=== PATIENT | male | born 1935 | race Caucasian/White ===

== ENCOUNTER 2016-10-21 11:51 | Inpatient (IN) ==
--- OUTSIDE RECORDS SUMMARY | 2016-10-21 12:36 | External Medical Summary ---
:1935 Author Organization [facility] Address [address] [place] [address] Care Team Providers Name Role Phone Susy Daily Unavailable Unavailable PROBLEMS Type Condition ICD9-CM Code [id number] Onset Condition SNOMED Code Code Dates Status Problem Ischemic I25.5 Active 413012158 cardiomyopathy ALLERGIES Unknown Allergies SOCIAL HISTORY No smoking Hx information available PLAN OF CARE VITAL SIGNS MEDICATIONS Unknown Medications RESULTS No Results PROCEDURES No Known procedures IMMUNIZATIONS No Known Immunizations
--- OUTSIDE RECORDS SUMMARY | 2016-10-21 12:36 | External Medical Summary ---
:1935 Author Organization [employer] Care Team Providers Name Role Phone Susy Daily Provider Role Unavailable Allergies, Adverse Reactions, Alerts Substance Reaction Event Type N.K.D.A. Info Not Available Non Drug Allergy Problems Problem Type Condition Code Onset Dates Condition Status Assessment Ischemic cardiomyopathy I25.5 Active Problem Ischemic cardiomyopathy I25.5 Active Medications Medication Code Code Instructions Start End Date Status Dosage System Date Plavix NDC 04597-76 75 MG Orally 1 tablet 03-99 Once a day Lisinopril NDC 93521-43 40 MG Orally 1 tablet 70-01 Once a day Aspirin NDC 88339-80 81 MG Orally 1 tablet 805 Once a day Carvedilol NDC 04862-67 6.25 MG Orally 1 tablet 35-01 Twice a day Furosemide NDC 43743-85 20 MG Orally 1 tablet 97-25 Once a day Amlodipine NDC 08452-24 5 MG Orally Once 1 tablet Besylate 01-22 [place] [address]-77 0.4 MG not 97-25 Sublingual defined Potassium NDC 35498-94 10 MEQ Orally 1 tablet Chloride ER 43-00 Once a day with food Procedures Procedure Coding System Code Date Office Visit, New Pt., Level 4 CPT-4 56152 Jan 15, 2016 ELECTROCARDIOGRAM, COMPLETE CPT-4 22938 Jan 15, 2016 Vital Signs Date/Time: Jan 15, 2016 BMI 29.16 Index Weight 186.2 lbs Height 5 ft 7 in in Cardiac Monitoring Heart Rate 50 /min Oximetry 97 % Blood Pressure Diastolic 82 mm Hg Blood Pressure Systolic 140 mm Hg Results No Known Results Summary Purpose eClinicalWorks Submission
--- OUTSIDE RECORDS SUMMARY | 2016-10-21 12:36 | External Medical Summary ---
:1935 Author Organization [employer] Care Team Providers Name Role Phone Susy Daily Provider Role Unavailable Allergies No Known Allergies Problems Problem Type Condition Code Onset Dates Condition Status Problem Ischemic cardiomyopathy I25.5 Active Medications No Known Medications Results No Known Results Summary Purpose eClinicalWorks Submission
--- OUTSIDE RECORDS SUMMARY | 2016-10-21 12:36 | External Medical Summary ---
:1935 Author Organization [facility] Address [address] [place] [address] Care Team Providers Name Role Phone Susy Daily Unavailable Unavailable PROBLEMS Type Condition ICD9-CM Code [id number] Onset Condition SNOMED Code Code Dates Status Problem Ischemic I25.5 Active [id number] cardiomyopathy ALLERGIES Unknown Allergies SOCIAL HISTORY No smoking Hx information available PLAN OF CARE VITAL SIGNS MEDICATIONS Unknown Medications RESULTS No Results PROCEDURES No Known procedures IMMUNIZATIONS No Known Immunizations
[2016-10-21 12:58] VITALS: BMI 28.7
--- NOTE | 2016-10-21 13:52 | XRay Report ---
Indication: SOA PROCEDURE: XR chest 1V: Encounter: Initial Comparison: February 27, 2016 Findings: Lungs are clear. No pleural effusion or pneumothorax. Chronic scarring in the left midlung. Cardiac silhouette remains enlarged. Mediastinal contours are stable. Left pacemaker defibrillator. Pulmonary vascularity appears less congested. Impression: No focal pneumonia or overt congestive failure. .
[2016-10-21] MEDS: SALINE FLUSH 10ml SYRINGE IVF PRN (13:55)
[2016-10-21] MEDS ORDERED: ONDANSETRON 4 MG/2 ML INJECTION IVP PRN (14:12)
[2016-10-21] MEDS ORDERED: LISINOPRIL 40 MG TABLET PO SCH (17:15)
[2016-10-21] MEDS ORDERED: --POM--LISINOPRIL 40 MG TABLET PO SCH (17:16)
[2016-10-21] MEDS ORDERED: CARVEDILOL 6.25 MG TABLET PO SCH (17:30)
[2016-10-21] MEDS: --POM--LISINOPRIL 40 MG TABLET PO SCH (18:54)
[2016-10-22] MEDS ORDERED: OXYMETAZOLINE 0.05% NASAL SPRAY 15ml EA NOSTRIL PRN (00:44)
[2016-10-22] MEDS: CARVEDILOL 12.5 MG TABLET PO SCH ×2 (08:49→17:48)
[2016-10-22] MEDS: --POM--LISINOPRIL 40 MG TABLET PO SCH (08:50)
[2016-10-22] MEDS: GUAIFENESIN LA 600 MG TABLET PO SCH (08:52)
[2016-10-22] MEDS ORDERED: GUAIFENESIN 400MG TABLET PO SCH (09:00)
[2016-10-22] MEDS: SALINE FLUSH 10ml SYRINGE IVF PRN (10:23)
--- NOTE | 2016-10-22 13:18 | Cardiology Progress Note ---
Subjective Principal diagnosis: Acute on chronic systolic HF, dyspnea <CsarlettErika figueroa 10/22/16 13:49> Interval history: Albert is seen in his room on Medical in follow up for heart failure and dyspnea. He states his breathing has improved an attributes this to a saline nasal spray he was given. He asked about the plans regarding his LE angiogram, explained that his heart failure is our priority right now. He denies chest pressure or tightness, he is in no distress on room air. <Erika Pantoja Zain 10/22/16 13:49> Exam Vital signs: Temperature 97.3 F 10/23/16 15:24 Pulse Rate 65 10/23/16 15:24 Respiratory Rate 18 10/23/16 15:24 Blood Pressure 126/80 10/23/16 15:24 Pulse Oximetry 98 10/23/16 15:24 <Kris Tripp - 10/23/16 16:42> Temperature 97.4 F 10/22/16 12:11 Pulse Rate 64 10/22/16 12:11 Respiratory Rate 18 10/22/16 12:11 Blood Pressure 131/103 H 10/22/16 12:11 Pulse Oximetry 93 10/22/16 12:11 <ScarlettErika Pittman - 10/22/16 13:18> - Constitutional no acute distress, well nourished, well developed, cooperative <Scarlett,Erika Pittman 10/22/16 13:49> - Routine HEENT Exam Head: Present: normocephalic <ScarlettErika garg Zain 10/22/16 13:49> ENT: Present: mucous membranes moist <Erika Pantoja Zain 10/22/16 13:49> - Routine Neck Exam Absent: JVD, carotid bruit <Erika Pantoja Zain 10/22/16 13:49> - Routine Chest/Breast/Axilla Exam Chest wall: Absent: tenderness <Erika Pantoja 10/22/16 13:49> - Routine Respiratory Exam Present: CTA bilaterally, diminished air movement. Absent: rales, wheezes < Erika Pantoja 10/22/16 13:49> - Routine Cardiovascular Exam Present: no murmur, irregular rhythm. Absent: JVD <Erika Pantoja 10/22/16 13:49> - Routine Abdominal Exam Present: soft, normoactive bowel sounds <Erika Pantoja - 10/22/16 13:49> - Routine Extremities Exam Present: no edema <Erika Pantoja - 10/22/16 13:49> - Routine Skin Exam Present: intact, dry, warm <Erika Pantoja - 10/22/16 13:49> - Routine Neurological Exam Present: alert, oriented X3 <Erika Pantoja - 10/22/16 13:49> - Routine Psychiatric Exam Present: normal affect, normal thought process <Erika Pantoja - 10/22/16 13: 49> - Additional findings Additional findings: Laboratory Results - last 48 hr 10/21/16 10/21/16 10/22/16 13:13 13:13 04:48 WBC 7.1 RBC 4.96 Hgb 14.5 Hct 44.7 MCV 90.1 MCH 29.2 MCHC 32.4 RDW Std Deviation 51.0 H Plt Count 93 L MPV 12.1 Immature Gran % (Auto) 0.1 Neut % (Auto) 63.4 Lymph % (Auto) 22.5 L [place] % (Auto) 8.3 Eos % (Auto) 4.9 H Baso % (Auto) 0.8 Neut # 4.5 Lymph # 1.6 Granite # 0.6 Eos # 0.4 Baso # 0.1 Abs Immat Gran (auto) 0.01 Turbidity < 20 < 20 Sodium 146 H 146 H Potassium 3.3 L 3.5 L Chloride 105 104 Carbon Dioxide 30 30 Anion Gap 11 12 BUN 38.0 H 39.0 H Creatinine 1.6 H 1.6 H GFR Calculation 42 42 BUN/Creatinine Ratio 24 24 Glucose 117 H 100 Calculated Osmolality 291 H 290 H Calcium 9.1 8.8 Magnesium 2.0 2.0 Total Bilirubin 2.40 H Icterus Index < 2 < 2 AST 37 ALT 50 Alkaline Phosphatase 86 Total Protein 6.8 Albumin 4.0 Globulin 2.8 Albumin/Globulin Ratio 1.4 Specimen Hemolysis < 15 < 15 10/22/16 04:48 WBC 5.5 RBC 4.88 Hgb 14.2 Hct 43.7 MCV 89.5 MCH 29.1 MCHC 32.5 RDW Std Deviation 51.4 H Plt Count 83 L MPV 11.7 Immature Gran % (Auto) 0.2 Neut % (Auto) 49.5 Lymph % (Auto) 34.4 [place] % (Auto) 8.4 Eos % (Auto) 6.2 H Baso % (Auto) 1.3 Neut # 2.7 Lymph # 1.9 Granite # 0.5 Eos # 0.3 Baso # 0.1 Abs Immat Gran (auto) 0.01 Turbidity Sodium Potassium Chloride Carbon Dioxide Anion Gap BUN Creatinine GFR Calculation BUN/Creatinine Ratio Glucose Calculated Osmolality Calcium Magnesium Total Bilirubin Icterus Index AST ALT Alkaline Phosphatase Total Protein Albumin Globulin Albumin/Globulin Ratio Specimen Hemolysis Apixaban (Eliquis) 5 mg PO BID [facility] Bumetanide (Bumex Inj) 2 mg IVP Q8H [facility] Carvedilol (Coreg) 12.5 mg PO BIDBS [facility] Last Admin: 10/22/16 08:49 Dose: 12.5 mg Guaifenesin (Mucinex La) 600 mg PO DAILY [facility] Last Admin: 10/22/16 08:52 Dose: 600 mg Lisinopril (Prinivil) 40 mg PO DAILY [facility] Last Admin: 10/22/16 08:50 Dose: 40 mg Ondansetron HCl (Zofran) 4 mg IVP Q6H PRN PRN Reason: Nausea &/or vomiting Last Admin: 10/21/16 14:20 Dose: 4 mg Oxymetazoline HCl (Afrin Nasal [place]) 2 spray EA NOSTRIL Q2H PRN PRN Reason: Nasal congestion Potassium Chloride (K-Dur) 40 meq PO BIDWM [facility] Sodium Chloride (Iv Flush) 10 - 80 ml IVF PRN PRN PRN Reason: Flushing Last Admin: 10/22/16 10:23 Dose: 10 ml <Erika Pantoja - 10/22/16 13:49> Progress Note-A&P (1) Acute on chronic systolic heart failure Status: Acute Current Visit: Yes (2) Presence of cardiac pacemaker Status: Chronic Current Visit: Yes (3) Atherosclerotic heart disease of [place] coronary artery without angina pectoris Status: Chronic Current Visit: Yes (4) Atherosclerosis of [place] artery of both lower extremities Status: Chronic Current Visit: Yes (5) Persistent atrial fibrillation Status: Chronic Current Visit: Yes (6) Cardiomyopathy Status: Chronic Current Visit: Yes (7) Essential (primary) hypertension Status: Chronic Current Visit: Yes (8) Mixed hyperlipidemia Status: Chronic Current Visit: Yes (9) Dyspnea Status: Acute Current Visit: Yes <Kris Tripp 10/23/16 16:42> (1) Acute on chronic systolic heart failure Status: Acute Assessment and plan: Increase Diuresis due to poor response. Bumex 2mg IV Q8H. Follow renal and Electrolytes Current Visit: Yes (2) Presence of cardiac pacemaker Status: Chronic Current Visit: Yes (3) Atherosclerotic heart disease of [place] coronary artery without angina pectoris Status: Chronic Current Visit: Yes (4) Atherosclerosis of [place] artery of both lower extremities Status: Chronic Current Visit: Yes (5) Persistent atrial fibrillation Status: Chronic Assessment and plan: Change Pradaxa to Eliquis due to creatinine 1.6 Current Visit: Yes (6) Cardiomyopathy Status: Chronic Current Visit: Yes (7) Essential (primary) hypertension Status: Chronic Current Visit: Yes (8) Mixed hyperlipidemia Status: Chronic Current Visit: Yes (9) Dyspnea Status: Acute Assessment and plan: C/O severe SOA at all times, especially when laying down. Continue Diuresis, O2 for comfort as necessary Current Visit: Yes <Erika Pantoja 10/23/16 15:31> - Time Spent With Patient Total time spent is greater than 50% in coordination of care (as documented) at patient's floor/unit and/or counseling patient: <Kris Tripp 10/23/16 16:42> Total time spent is greater than 50% in coordination of care (as documented) at patient's floor/unit and/or counseling patient: <Erika Pantoja 10/22/16 13:18> less than 15 minutes <Erika Pantoja 10/22/16 13:49> - Attestation Attestation Narrative: Recommendation After examining the patient I agree with the above assessment. I am involved in the formulation of the patient's plan of care. <Kris Tripp 10/23/16 16:42> Sepsis Assessment - Evaluation Sepsis screening result: No Definite Risk <Erika Pantoja 10/22/16 13:18> Hospital Course Summary Disclaimer: The visit summary below is not to be considered part of the above Progress Note. <Kris Tripp 10/23/16 16:42> The visit summary below is not to be considered part of the above Progress Note. <Erika Pantoja - 10/22/16 13:18> Hospital Course: 10/21/16 Admitted from office for diuresis due to acute on chronic systolic HF: Diurese with Bumex 1mg IV Q8H, watch renal and electrolytes Continue home meds for AFib, HTN, HLD 10/22/16 Acute on chronic systolic HF: Increase Diuresis due to poor response. Bumex 2mg IV Q8H. Follow renal and Electrolytes Dyspnea: C/O severe SOA at all times, especially when laying down. Continue Diuresis, O2 for comfort as necessary Change Pradaxa to Eliquis due to creatinine of 1.6 <Erika Pantoja - 10/22/16 13:49>
[2016-10-22] MEDS: BUMETANIDE 2.5mg/10ml INJECTION IVP SCH (17:44)
[2016-10-22] MEDS: APIXABAN 5 MG TABLET PO SCH (20:48)
[2016-10-23] MEDS: BUMETANIDE 2.5mg/10ml INJECTION IVP SCH ×3 (00:42→17:18)
[2016-10-23 07:38] VITALS: RESP 18
[2016-10-23] MEDS: CARVEDILOL 12.5 MG TABLET PO SCH ×2 (08:35→17:18)
[2016-10-23] MEDS: APIXABAN 5 MG TABLET PO SCH (08:37)
[2016-10-23] MEDS: GUAIFENESIN LA 600 MG TABLET PO SCH (08:39)
[2016-10-23] MEDS: --POM--LISINOPRIL 40 MG TABLET PO SCH (08:40)
[2016-10-23 11:31] VITALS: TEMP 97.3
[2016-10-23 15:26] VITALS: BP 126/80; PULSE 65; O2SAT 98
--- NOTE | 2016-10-23 15:40 | Discharge Summary ---
<Erika Pantoja - Last Filed: 10/23/16 16:18> Discharge Information Date of admission: 10/22/16 13:22 Anticipated date of discharge: 10/23/16 Attending Physician: Kris Tripp MD Primary care physician: LUIS TRAN - Laboratory Labs: 10/23/16 04:07 10/23/16 04:07 10/22/16 10/23/16 04:48 04:07 WBC 5.5 6.1 RBC 4.88 4.78 Hgb 14.2 14.2 Hct 43.7 42.6 MCV 89.5 89.1 MCH 29.1 29.7 MCHC 32.5 33.3 RDW Std Deviation 51.4 H 51.4 H Plt Count 83 L 81 L MPV 11.7 11.6 Immature Gran % (Auto) 0.2 Neut % (Auto) 49.5 Lymph % (Auto) 34.4 [place] % (Auto) 8.4 Eos % (Auto) 6.2 H Baso % (Auto) 1.3 Neut # 2.7 Lymph # 1.9 [place] # 0.5 Eos # 0.3 Baso # 0.1 Abs Immat Gran (auto) 0.01 - Radiology Radiology: Date of Exam: 10/21/16 Ordering Provider: Erika Pantoja [employer] Type of Exam(s): XR chest 1V Reason for Exam(s): SOA Indication: SOA PROCEDURE: XR chest 1V: Encounter: Initial Comparison: February 27, 2016 Findings: Lungs are clear. No pleural effusion or pneumothorax. Chronic scarring in the left midlung. Cardiac silhouette remains enlarged. Mediastinal contours are stable. Left pacemaker defibrillator. Pulmonary vascularity appears less congested. Impression: No focal pneumonia or overt congestive failure. History of Present Illness HPI: Albert is a 80 year old male who is well known to Dr. Tripp with a history of systolic heart failure, Presence of cardiac pacemaker, Atherosclerotic heart disease of [place] coronary artery without angina pectoris, Atherosclerosis of [place] artery of both lower extremities, Persistent atrial fibrillation, Cardiomyopathy, Essential (primary) hypertension, and Mixed hyperlipidemia who was admitted with acute on chronic systolic heart failure and dyspnea for diuresis. Hospital Course This is a general summary of the patient's hospital course. For more details refer to the complete medical record. Hospital course: 10/21/16 Admitted from office for diuresis due to acute on chronic systolic HF: Diurese with Bumex 1mg IV Q8H, watch renal and electrolytes Continue home meds for AFib, HTN, HLD 10/22/16 Acute on chronic systolic HF: Increase Diuresis due to poor response. Bumex 2mg IV Q8H. Follow renal and Electrolytes Dyspnea: C/O severe SOA at all times, especially when laying down. Continue Diuresis, O2 for comfort as necessary Change Pradaxa to Eliquis due to creatinine of 1.6 Time spent with patient: less than 15 minutes DVT Prophylaxis: Eliquis Exam Vital signs: Temperature 97.3 F 10/23/16 15:24 Pulse Rate 65 10/23/16 15:24 Respiratory Rate 18 10/23/16 15:24 Blood Pressure 126/80 10/23/16 15:24 Pulse Oximetry 98 10/23/16 15:24 - Constitutional no acute distress, well nourished, well developed, cooperative - Routine HEENT Exam Head: Present: normocephalic ENT: Present: mucous membranes moist - Routine Neck Exam Absent: JVD, carotid bruit - Routine Chest/Breast/Axilla Exam Chest wall: Absent: tenderness - Routine Respiratory Exam Present: CTA bilaterally. Absent: rales, wheezes - Routine Cardiovascular Exam Present: RRR, no murmur. Absent: JVD - Routine Abdominal Exam Present: soft, normoactive bowel sounds - Routine Extremities Exam Present: no edema - Routine Skin Exam Present: intact, dry, warm - Routine Neurological Exam Present: alert, oriented X3 - Routine Psychiatric Exam Present: normal affect, normal thought process Results 10/23/16 04:07 10/23/16 04:07 CBC 10/23/16 Range/Units 04:07 WBC 6.1 (4.5-11.0) T/MM3 RBC 4.78 (4.50-5.90) M/MM3 Hgb 14.2 (13.5-17.5) GM/DL Hct 42.6 (41-53) % Plt Count 81 L (130-400) T/MM3 Comprehensive Metabolic Panel 10/23/16 Range/Units 04:07 Sodium 143 (134-144) MEQ/L Potassium 4.0 (3.6-5) MEQ/L Chloride 104 (98-107) MEQ/L Carbon Dioxide 30 (22-30) MEQ/L BUN 41.0 H (9-20) MG/DL Creatinine 1.5 (0.8-1.5) MG/DL Glucose 115 H (75-110) MG/DL Calcium 8.7 (8.4-10.2) MG/DL Intake and Output 10/23/16 10/23/16 10/23/16 06:59 14:59 22:59 Intake Total 500 / 500 1090 / 1090 Output Total 625 / 625 1110 / 1110 Balance -125 / -125 -20 / -20 Intake: Oral 500 / 500 1090 / 1090 Output: Urine 625 / 625 1110 / 1110 Other: Urine Appearance Clear Clear Urine Color Yellow Yellow Urine Odor Normal Weight 185 lb 3.013 oz Patient Weight 10/24/16 06:59 Weight 185 lb 3.013 oz - Imaging and Cardiology EKG results: image reviewed Discharge Plan - Med Rec/Dispo Referrals/Follow Up: Kris Tripp MD [Physician] - 11/18/16 11:10 am Prescriptions: New Apixaban [Eliquis] 5 mg PO BID #60 tab Bumetanide Tab [Bumex Tab] 2 mg PO [id number] #120 tab Continue Potassium Chloride [K-Dur] 20 meq PO BID Lisinopril [Prinivil] 20 mg PO DAILY Nitroglycerin [Nitrostat] 0.4 mg SL Q5MIN PRN #25 tab PRN Reason: CHEST PAIN Carvedilol [Coreg] 12.5 mg PO BIDBS Discontinued Furosemide [Lasix] 20 mg PO DAILY #30 tab Pradaxa 150 mg PO BID Bumetanide Tab [Bumex Tab] 1 mg PO BID - Disposition 01 Discharged Home, Self-Care <Kris Tripp - Last Filed: 10/24/16 13:38> Discharge Information Date of admission: 10/22/16 13:22 Attending Physician: Kris Tripp MD Primary care physician: LUIS TRAN - Laboratory Labs: 10/23/16 04:07 10/23/16 04:07 Hospital Course This is a general summary of the patient's hospital course. For more details refer to the complete medical record. Exam Vital signs: Temperature 97.3 F 10/23/16 15:24 Pulse Rate 65 10/23/16 15:24 Respiratory Rate 18 10/23/16 15:24 Blood Pressure 126/80 10/23/16 15:24 Pulse Oximetry 98 10/23/16 15:24 Results 10/23/16 04:07 10/23/16 04:07 Discharge Plan - Med Rec/Dispo - Attestation Attestation Narrative: 10/24/16 13:38 Recommendation After examining the patient I agree with the above assessment. I am involved in the formulation of the patient's plan of care.
== END 2016-10-23 17:08 | disposition home or self-care (01) | DRG 292 ==
LOC: SRG → MED 12:43
PROVIDERS: ADMIT Internal Medicine Cardiovascular Disease; ATTEND Internal Medicine Cardiovascular Disease

== ENCOUNTER 2016-11-15 09:43 | Inpatient (IN) ==
--- NOTE | 2016-11-15 10:08 | Emergency Department Report ---
SOB HPI - General Chief Complaint: Shortness of Breath/Dyspnea Stated Complaint: Diff breathing Time Seen by Provider: 11/15/16 10:06 Source: patient - History of Present Illness 80-year-old male presents to ER with complaint of shortness of breath. Patient states that he has had "shortness of air worth worse with exertion for years ". Says he was recently in the hospital and dismissed for this same symptoms. Patient says he has not been able to take his morning medications because he has nausea and vomiting. States that nausea and vomiting is chronic (not new). Says he has swelling in lower extremities that goes down at night. Is up during the night urinating. Patient denies any hx. of COPD or lung disease. Patient has "borrowed some oxygen" and has been using this at home for some time. Normally use 4L. Says that his sales service rep say O2 is not warranted but does know he has been using O2 at home. Denies fever, chills, CP, diaphoresis. Patient has pacemaker, hx. of atrial fibrillation, CHF. MD Complaint: shortness of breath Onset (ago): year(s) Exacerbating factors: lying flat, exertion - Related Data Home Medications Medication Instructions Recorded Confirmed Lisinopril [Prinivil] 40 mg PO DAILY 10/21/16 11/15/16 Previous Rx's Medication Instructions Recorded Nitroglycerin [Nitrostat] 0.4 mg SL Q5MIN PRN #25 tab 01/27/15 Apixaban [Eliquis] 5 mg PO BID #60 tab 10/23/16 Amlodipine [Norvasc] 5 mg PO DAILY #30 tab 11/18/16 Bumetanide Tab [Bumex Tab] 3 mg PO [id number] #180 tab 11/18/16 Carvedilol [Coreg] 12.5 mg PO BIDWM #60 tab 11/18/16 Metolazone [Zaroxolyn] 2.5 mg PO WEEKLY #10 tab 11/18/16 Ondansetron Odt [Zofran Po] 4 mg PO Q6H PRN #30 tab 11/18/16 Pantoprazole Tab [Protonix Tab] 40 mg PO ACB #30 tab 11/18/16 Potassium Chloride [K-Dur] 20 meq PO TIDWM #90 tab 11/18/16 Allergies Allergy/AdvReac Type Severity Reaction Status Date / Time No Known Allergies Allergy Unverified 11/15/16 10:07 Review of Systems All systems: reviewed and negative except as stated Cardiovascular: Reports: as per HPI, dyspnea on exertion PFSH Patient Stated Medical History Peripheral Neuropathy Yes Seizures Yes Other HEENT Yes: Meniere's disease Angina Yes Cardiac Arrhythmia Yes Congestive Heart Failure Yes Coronary Artery Disease Yes Hypertension Yes Myocardial Infarction Yes Pneumonia Yes Sleep Apnea Yes Ulcer Yes Other enlarged prostate Surgical History: Heart Catherization. ICD Family History: Noncontributory - Social History Smoking status: Never smoker Current occupational status: retired Physical Exam - Limitations Limitations: no limitations - General General appearance: alert - Normal Exams: Head:: Normocephalic without trauma Eyes:: No scleral icterus, irritation ENMT:: No facial trauma, nasal exudates Abdomen:: Bowel sounds positive, soft, non-tender, non-distended Neurological:: Patient is alert, and oriented, motor/sensory/cerebellar, exams w /o gross deficits, to observation Psychiatric:: Patient exhibits, appropriate attention, emotion and affect - Neck Neck exam: Present: trachea midline - Respiratory Respiratory exam: Present: normal lung sounds bilaterally (bilaterally) - Cardiovascular Cardiovascular exam: Present: irregular rhythm (heart rate 76), other (see below ) - Extremities Exam Extremities exam: Present: pedal edema (bilaterally worse on right) - Skin Skin exam: Present: warm, dry Course - Consultations Consultation #1: I discussed HPI, PMH, labs, EKG, CXR, VS and exam findings with Erika Tang APRN for Dr. Tripp. Erika said that patient may have diuretic in ED and if he is feeling improved he may go home and follow with Dr. Tripp next week, if not patient can be admitted. Vital Signs Temperature 97.8 F 11/15/16 09:45 Pulse Rate 91 11/15/16 09:45 Respiratory Rate 26 H 11/15/16 09:45 Blood Pressure 128/104 H 11/15/16 09:45 Pulse Oximetry 96 11/15/16 09:45 Temperature 95.3 F L 11/18/16 07:28 Pulse Rate 70 11/18/16 08:00 Respiratory Rate 18 11/18/16 07:28 Blood Pressure 133/89 11/18/16 07:28 Pulse Oximetry 96 11/18/16 07:28 Shortness of Breath/Dyspnea - MDM Narrative Medical decision making narrative: Patient states he is feeling better after 2mg IV of Bumex. Provider care turned over to Dr. Kerr awaiting CT chest findings at 1400. - Differential Diagnosis Likely: congestive heart failure - Medical Records Attestation: I reviewed the patient's medical records. - Lab Data Attestation: I reviewed the patient's lab results. Result diagrams: 11/17/16 04:11 11/18/16 04:12 Lab Results 11/15/16 11/15/16 Range/Units 10:27 10:27 WBC 6.0 (4.5-11.0) T/MM3 RBC 5.12 (4.50-5.90) M/MM3 Hgb 14.7 (13.5-17.5) GM/DL Hct 45.4 (41-53) % MCV 88.7 (80-100) UM3 MCH 28.7 (26-34) UUG MCHC 32.4 (31-37) GM/DL RDW Std Deviation 53.3 H (36.9-50.2) FL Plt Count 97 L (130-400) T/MM3 MPV 12.4 (9.4-12.4) UM3 Immature Gran % (Auto) 0.2 (0.0-0.5) % Neut % (Auto) 54.4 (33-66) % Lymph % (Auto) 29.7 (23-45) % [place] % (Auto) 12.2 H (0-9.0) % Eos % (Auto) 2.0 (0-4) % Baso % (Auto) 1.5 (0-2) % Neut # (Auto) 3.3 (1.8-7.7) T/MM3 Lymph # (Auto) 1.8 (1-4.8) T/MM3 [place] # (Auto) 0.7 (0-0.8) T/MM3 Eos # (Auto) 0.1 (0-0.5) T/MM3 Baso # (Auto) 0.1 (0-0.2) T/MM3 Abs Immat Gran (auto) 0.01 (0.00-0.03) T/MM3 Turbidity < 20 (0-20) Sodium 146 H (134-144) MEQ/L Potassium 4.2 (3.6-5) MEQ/L Chloride 106 (98-107) MEQ/L Carbon Dioxide 25 (22-30) MEQ/L Anion Gap 15 (5-15) MEQ/L BUN 37.0 H (9-20) MG/DL Creatinine 1.9 H (0.8-1.5) MG/DL GFR Calculation 34 BUN/Creatinine Ratio 20 (6-26) RATIO Glucose 105 (75-110) MG/DL Calculated Osmolality 290 H (261-280) MOSM/KG Calcium 9.6 (8.4-10.2) MG/DL Total Bilirubin 3.40 H (0.20-1.30) MG/DL Icterus Index < 2 (0-7) AST 54 (17-59) U/L ALT 44 (21-72) U/L Alkaline Phosphatase 97 (38-126) U/L Troponin I 0.080 (0-0.12) ng/ml B-Natriuretic Peptide 63912 H (0-175) pg/mL Total Protein 6.8 (6.3-8.2) G/DL Albumin 3.7 (3.5-5.0) G/DL Globulin 3.1 (2.4-3.6) G/DL Albumin/Globulin Ratio 1.2 (1.1-2.2) RATIO Specimen Hemolysis < 15 (0-25) - Radiology Data Attestation: I reviewed the patient's radiology results. Disposition Clinical Impression: Acute on chronic systolic heart failure Disposition: [place] [facility] [place]: Stable - Seen By: midlevel and physician
[2016-11-15] MEDS ORDERED: BUMETANIDE 2.5mg/10ml INJECTION IVP ONE (11:17)
[2016-11-15] MEDS: SALINE FLUSH 10ml SYRINGE IVF PRN ×2 (11:24→21:24)
[2016-11-15] MEDS ORDERED: IODIXANOL 320mg/ml 100ml INJECTION IV ONE (13:34)
[2016-11-15] MEDS ORDERED: SALINE FLUSH 10ml SYRINGE ONE (13:34)
[2016-11-15] MEDS ORDERED: NS 100 ML ONE (13:34)
[2016-11-15] MEDS ORDERED: ONDANSETRON 4 MG/2 ML INJECTION IVP ONE ×2 (14:10)
[2016-11-15 15:52] VITALS: BMI 29.2
--- NOTE | 2016-11-15 16:48 | Cardiology History & Physical ---
History of Present Illness Chief complaint: dyspnea HPI: Albert is a 80 year old male who is well known to our practice with a history of chronic systolic CHF, cardiomyopathy with an EF of 25%, [employer] AICD, CAD, PAD, persistent atrial fibrillation, pulmonary hypertension with PAP 49mmHg, HTN and HLD who presented to the ED today with shortness of breath. He reported he has had "shortness of air worth worse with exertion for years ". Says he was recently in the hospital and dismissed for this same symptoms. He states he has not been able to take his morning medications because he has nausea and vomiting. States that nausea and vomiting is chronic (not new). Says he has swelling in lower extremities that goes down at night. He has "borrowed some oxygen" and has been using this at home for some time. Normally use 4L. Says that his activities leader say O2 is not warranted but does know he has been using O2 at home. Albert is seen on Medical. He is laying in bed with the HOB at 30%, on O2 at 3L /NC. He has conversational dyspnea, lips are cracked and dry, and he has no pedal edema. Lung sounds clear other than essentially no breath sounds in the lower right lobe. He denies recent illness, fever, chills, cough, sore throat, CP, diaphoresis. Review of Systems - Constitutional Constitutional: Absent: chills, fever(s), weight gain, weight loss - EENMT Eyes: Absent: change in vision Balance: Absent: vertigo Mouth/Throat: Absent: sore throat, scratchy throat - Cardiovascular Cardiovascular: Present: dyspnea on exertion, orthopnea, edema. Absent: chest pain, palpitations, syncope Vascular: Absent: pedal edema - Respiratory Respiratory: Present: dyspnea, dyspnea on exertion. Absent: cough - Gastrointestinal Gastrointestinal: Present: nausea, vomiting. Absent: abdominal pain, diarrhea - Genitourinary Genitourinary: Present: nocturia. Absent: dysuria - Integumentary/Breasts Integumentary: Absent: rash - Neurological Neurological: Absent: dizziness, headache(s) - Endocrine Endocrine: Absent: palpitations PFSH Patient Stated Medical History Peripheral Neuropathy Yes Seizures Yes Other HEENT Yes: Meniere's disease Angina Yes Cardiac Arrhythmia Yes AFIB Congestive Heart Failure Yes Systolic Coronary Artery Disease Yes Hypertension Yes Myocardial Infarction Yes Pneumonia Yes Sleep Apnea Yes Ulcer Yes Other enlarged prostate Surgical History: Heart Catherization. ICD - Social History Smoking status: Never smoker Substance use type: does not use Alcohol intake frequency: does not drink Household members: significant other Current occupational status: retired Current residence: Apartment/Private Home Medications Home Medications Medication Instructions Recorded Confirmed Type Lisinopril [Prinivil] 40 mg PO DAILY 10/21/16 11/15/16 History Potassium Chloride [K-Dur] 20 meq PO BID 10/21/16 11/15/16 History Bumetanide Tab [Bumex Tab] 1 mg PO BID 11/11/16 11/15/16 History Allergies Allergy/AdvReac Type Severity Reaction Status Date / Time No Known Allergies Allergy Unverified 11/15/16 10:07 Exam Vital signs: Temperature 97.0 F 11/15/16 15:51 Pulse Rate 108 H 11/15/16 15:54 Respiratory Rate 20 11/15/16 15:51 Blood Pressure 133/90 H 11/15/16 15:51 Pulse Oximetry 95 11/15/16 15:51 - Constitutional no acute distress, well nourished, cooperative - Routine HEENT Exam Head: Present: normocephalic ENT: Present: mucous membranes dry - Routine Neck Exam Present: JVD. Absent: carotid bruit - Routine Chest/Breast/Axilla Exam Chest wall: Absent: tenderness - Routine Respiratory Exam Present: diminished air movement (RLL). Absent: CTA bilaterally, rales, wheezes - Routine Cardiovascular Exam Present: no murmur, irregular rhythm, JVD - Routine Abdominal Exam Present: soft, normoactive bowel sounds - Routine Extremities Exam Present: no edema - Routine Skin Exam Present: intact, dry, warm - Routine Neurological Exam Present: alert, oriented X3 - Routine Psychiatric Exam Present: normal affect, normal thought process Results 11/17/16 04:11 11/16/16 05:22 Intake and Output 11/15/16 11/15/16 11/15/16 06:59 14:59 22:59 Intake Total 0 / 0 Balance 0 / 0 Intake: Oral 0 / 0 Other: Weight 186 lb 15.232 oz Patient Weight 11/16/16 06:59 Weight 186 lb 15.232 oz - Imaging and Cardiology Imaging & Cardiology Narrative: Right pleural effusion on chest xray Hospital Course This is a general summary of the patient's hospital course. For more details refer to the complete medical record. Hospital course: Acute on Chronic Systolic CHF: - Diuresis with Bumex 2mg IV Q6H. - Potassium 20meq po TID. - Fluid restriction of 2000ml/24h - repeat renal and electrolytes in am Cardiomyopathy: - Diuresis with Bumex 2mg IV Q6H. - Potassium 20meq po TID. - Fluid restriction of 2000ml/24h - repeat renal and electrolytes in am Time spent with patient: 25 - 35 minutes DVT Prophylaxis: Eliquis Assessment and Plan - Attestation Attestation Narrative: 11/17/16 13:53 Recommendation After examining the patient I agree with the above assessment. I am involved in the formulation of the patient's plan of care. - Assessment and Plan (1) Acute on chronic systolic heart failure Current visit: No Status: Acute Diuresis with Bumex 2mg IV Q6H. - Potassium 20meq po TID. - Fluid restriction of 2000ml/24h - repeat renal and electrolytes in am (2) Cardiomyopathy Current visit: No Status: Chronic Diuresis with Bumex 2mg IV Q6H. - Potassium 20meq po TID. - Fluid restriction of 2000ml/24h - repeat renal and electrolytes in am (3) Presence of cardiac pacemaker Current visit: No Status: Chronic (4) Atherosclerotic heart disease of [place] coronary artery without angina pectoris Current visit: No Status: Chronic (5) Atherosclerosis of [place] artery of both lower extremities Current visit: No Status: Chronic (6) Persistent atrial fibrillation Current visit: No Status: Chronic Continue Eliquis for stroke prevention (7) Essential (primary) hypertension Current visit: No Status: Chronic (8) Mixed hyperlipidemia Current visit: No Status: Chronic
[2016-11-15] MEDS: PANTOPRAZOLE 40 MG INJECTION IVP SCH (17:53)
[2016-11-15] MEDS: CARVEDILOL 12.5 MG TABLET PO SCH (17:53)
[2016-11-15] MEDS: APIXABAN 5 MG TABLET PO SCH (21:24)
[2016-11-16] MEDS: CARVEDILOL 12.5 MG TABLET PO SCH ×2 (08:08→16:41)
[2016-11-16] MEDS: APIXABAN 5 MG TABLET PO SCH ×2 (08:08→20:49)
[2016-11-16] MEDS: PANTOPRAZOLE 40 MG INJECTION IVP SCH (08:08)
--- NOTE | 2016-11-16 09:11 | CT Scan Report ---
Indication: peak in left diaphragm, concern for mass/consolidation PROCEDURE: CT chest w con: Encounter: Initial Comparison: None Technique: Axial CT images were performed through the chest after the administration of intravenous contrast. Coronal and sagittal two-dimensional reformats. Automated Exposure Control and Iterative Reconstruction dose reducing techniques were utilized. Contrast: Visipaque 30 75 mL Findings: Moderate sized right pleural effusion with compressive atelectasis of the right middle lobe. Scarring and focal atelectasis in the medial right middle lobe containing an area of calcification on axial image #38. Small calcified granulomas. Bleb in the left lower lobe with a nearby granuloma. No pneumothorax. No discrete pulmonary mass. The central airways are patent. No axillary or mediastinal adenopathy. Heart is severely enlarged with a small pericardial effusion. Calcified hilar granulomas. Granulomatous disease in the liver and spleen with ascites seen in the upper abdomen. Multiple gallstones. Impression: 1. Right pleural effusion with ascites may represent a generalized volume overload or represent renal, hepatic or cardiac dysfunction. There is no strong evidence of acute pulmonary edema in the chest however. 2. Severe cardiomegaly with a pericardial effusion. There is a preliminary report by [facility]. .
--- NOTE | 2016-11-16 09:36 | XRay Report ---
Indication: SOA, hx. of CHF PROCEDURE: XR chest 1V: Encounter: Initial Comparison: CT chest from the same date Findings: Hypoinflation. Right pleural effusion better seen on the chest CT. Right basilar airspace consolidation. Increased interstitial markings. No pneumothorax. Cardiac silhouette is severely enlarged but unchanged. Cardiac pacemaker defibrillator again noted. Mediastinal contours are stable. Pulmonary vascularity is indistinct. Impression: Right pleural effusion and basilar airspace disease. Findings of congestive failure. .
[2016-11-16] MEDS ORDERED: ONDANSETRON 4 MG/2 ML INJECTION IVP PRN (16:31)
[2016-11-16] MEDS: SALINE FLUSH 10ml SYRINGE IVF PRN ×2 (16:40→23:15)
--- NOTE | 2016-11-16 19:55 | Cardiology Progress Note ---
Subjective Principal diagnosis: Acute on chronic systolic heart failure <Erika Pantoja Zain - 11/16/16 20:01> Interval history: Albert is seen in follow up for CHF. He is in bed eating breakfast, states he has nausea but has not vomited today. He remains on O2 with some conversational dyspnea. He denies chest pain or pressure, palpitations, or dizziness. <Erika Pantoja - 11/16/16 20:01> Exam Vital signs: Temperature 95.3 F L 11/18/16 07:28 Pulse Rate 70 11/18/16 08:00 Respiratory Rate 18 11/18/16 07:28 Blood Pressure 133/89 11/18/16 07:28 Pulse Oximetry 96 11/18/16 07:28 <Kris Tripp - 11/21/16 15:33> Temperature 95.6 F L 11/16/16 15:09 Pulse Rate 60 11/16/16 16:31 Respiratory Rate 16 11/16/16 15:09 Blood Pressure 116/78 11/16/16 15:09 Pulse Oximetry 95 11/16/16 15:09 <ScarlettErika - 11/16/16 20:01> - Constitutional no acute distress, cooperative <Scarlett,Erika [facility] 11/16/16 20:01> - Routine HEENT Exam Head: Present: normocephalic <ScarlettErika Pittman 11/16/16 20:01> - Routine Neck Exam Present: JVD. Absent: carotid bruit <ScarlettErika garg Zain 11/16/16 20:01> - Routine Chest/Breast/Axilla Exam Chest wall: Absent: tenderness <ScarlettErika garg Zain 11/16/16 20:01> - Routine Respiratory Exam Present: CTA bilaterally, diminished air movement (RLL). Absent: rales < Erika Pantoja Zain 11/16/16 20:01> - Routine Cardiovascular Exam Present: no murmur, irregular rhythm, JVD <Erika Pantoja 11/16/16 20:01> - Routine Abdominal Exam Present: soft, normoactive bowel sounds <Erika Pantoja 11/16/16 20:01> - Routine Extremities Exam Present: no edema <Erika Pantoja 11/16/16 20:01> - Routine Skin Exam Present: intact, dry, warm <Erika Pantoja - 11/16/16 20:01> - Routine Neurological Exam Present: alert, oriented X3 <Erika Pantoja - 11/16/16 20:01> - Routine Psychiatric Exam Present: normal affect, normal thought process <Erika Pantoja - 11/16/16 20: 01> - Additional findings Additional findings: Laboratory Results - last 24 hr 11/16/16 11/16/16 05:22 05:22 WBC 4.6 RBC 4.67 Hgb 13.7 Hct 42.2 MCV 90.4 MCH 29.3 MCHC 32.5 RDW Std Deviation 54.0 H Plt Count 90 L MPV 12.6 H Turbidity < 20 Sodium 146 H Potassium 4.0 Chloride 106 Carbon Dioxide 28 Anion Gap 12 BUN 39.0 H Creatinine 2.0 H GFR Calculation 32 BUN/Creatinine Ratio 20 Glucose 72 L Calculated Osmolality 289 H Calcium 8.9 Magnesium 2.2 Icterus Index < 2 Specimen Hemolysis < 15 Apixaban (Eliquis) 5 mg PO BID [facility] Last Admin: 11/16/16 08:08 Dose: 5 mg Bumetanide (Bumex Inj) 2 mg IVP Q6H [facility] Last Admin: 11/16/16 16:40 Dose: 2 mg Carvedilol (Coreg) 12.5 mg PO BIDWM [facility] Last Admin: 11/16/16 16:41 Dose: 12.5 mg Ondansetron HCl (Zofran) 4 mg IVP Q6H PRN PRN Reason: Nausea &/or vomiting Last Admin: 11/16/16 16:41 Dose: 4 mg Pantoprazole Sodium (Protonix Iv) 40 mg IVP DAILY [facility] Last Admin: 11/16/16 08:08 Dose: 40 mg Potassium Chloride (K-Dur) 20 meq PO TIDWM [facility] Last Admin: 11/16/16 16:41 Dose: 20 meq Sodium Chloride (Iv Flush) 10 - 80 ml IVF PRN PRN PRN Reason: Flushing Last Admin: 11/16/16 16:40 Dose: 20 ml <Erika Pantoja - 11/16/16 20:01> Assessment and Plan - Assessment and Plan (1) Acute on chronic systolic heart failure Status: Acute (2) Presence of cardiac pacemaker Status: Chronic (3) Atherosclerotic heart disease of [place] coronary artery without angina pectoris Status: Chronic (4) Atherosclerosis of [place] artery of both lower extremities Status: Chronic (5) Persistent atrial fibrillation Status: Chronic (6) Cardiomyopathy Status: Chronic (7) Essential (primary) hypertension Status: Chronic (8) Mixed hyperlipidemia Status: Chronic <Kris Tripp - 11/21/16 15:33> (1) Acute on chronic systolic heart failure Status: Acute continue Bumex 2mg IV Q6H Recheck BMP, Mag, and BNP in Am Chest x-ray in am (2) Cardiomyopathy Status: Chronic (3) Presence of cardiac pacemaker Status: Chronic (4) Atherosclerotic heart disease of [place] coronary artery without angina pectoris Status: Chronic (5) Atherosclerosis of [place] artery of both lower extremities Status: Chronic (6) Persistent atrial fibrillation Status: Chronic (7) Essential (primary) hypertension Status: Chronic (8) Mixed hyperlipidemia Status: Chronic <Erika Pantoja - 11/17/16 16:41> - Attestation Attestation Narrative: 11/21/16 15:33 Recommendation After examining the patient I agree with the above assessment. I am involved in the formulation of the patient's plan of care. <Kris Tripp - 11/21/16 15:33> Hospital Course Summary Disclaimer: The visit summary below is not to be considered part of the above Progress Note. <Kris Tripp - 11/21/16 15:33> The visit summary below is not to be considered part of the above Progress Note. <Erika Pantoja - 11/16/16 20:01> Hospital Course: Acute on Chronic Systolic CHF: - Diuresis with Bumex 2mg IV Q6H. - Potassium 20meq po TID. - Fluid restriction of 2000ml/24h - repeat renal and electrolytes in am Cardiomyopathy: - Diuresis with Bumex 2mg IV Q6H. - Potassium 20meq po TID. - Fluid restriction of 2000ml/24h - repeat renal and electrolytes in am 11/16/16 continue Bumex 2mg IV Q6H Recheck BMP, Mag, and BNP in Am Chest x-ray in am <Erika Pantoja - 11/16/16 20:01>
[2016-11-16] MEDS: AMLODIPINE 5 MG TABLET PO SCH (20:49)
[2016-11-17] MEDS: SALINE FLUSH 10ml SYRINGE IVF PRN ×2 (05:08→10:16)
--- NOTE | 2016-11-17 09:11 | XRay Report ---
INDICATION: dyspnea PROCEDURE: CHEST 2-VIEWS UPRIGHT (PA & LAT) Encounter: Initial COMPARISON: November 15, 2016 FINDINGS: Improving aeration of the right lower lobe with persistent bibasilar airspace opacities fluid along the minor fissure. No pneumothorax or new airspace consolidation. Heart size and mediastinal contours are stable. Impression: Slightly improved aeration of the right lower lobe with persistent mild edema and small right effusion. .
[2016-11-17] MEDS: APIXABAN 5 MG TABLET PO SCH ×2 (10:14→21:26)
[2016-11-17] MEDS: AMLODIPINE 5 MG TABLET PO SCH (10:14)
[2016-11-17] MEDS: CARVEDILOL 12.5 MG TABLET PO SCH ×2 (10:14→18:17)
[2016-11-17] MEDS: PANTOPRAZOLE 40 MG INJECTION IVP SCH (10:15)
[2016-11-17 10:26] VITALS: RESP 18
--- NOTE | 2016-11-17 16:43 | Cardiology Progress Note ---
Subjective Principal diagnosis: Acute on chronic systolic heart failure <Erika Pantoja - 11/17/16 16:43> Interval history: Albert is seen in follow up for CHF. He is laying flat in the bed, on room air. He states the medicines for his stomach has helped, he has not vomited today. He denies chest pain or pressure, palpitations, or dizziness. <Erika Pantoja - 11/17/16 19:44> Exam Vital signs: Temperature 95.3 F L 11/18/16 07:28 Pulse Rate 70 11/18/16 08:00 Respiratory Rate 18 11/18/16 07:28 Blood Pressure 133/89 11/18/16 07:28 Pulse Oximetry 96 11/18/16 07:28 <Kris Tripp - 11/21/16 15:35> Temperature 95.6 F L 11/17/16 07:35 Pulse Rate 59 L 11/17/16 15:22 Respiratory Rate 18 11/17/16 15:22 Blood Pressure 102/64 11/17/16 15:22 Pulse Oximetry 95 11/17/16 15:22 <Erika Pantoja - 11/17/16 16:43> - Constitutional no acute distress, well nourished, cooperative <Erika Pantoja [facility] 11/17/16 16: 43> - Routine HEENT Exam Head: Present: normocephalic <Erika Pantoja [facility] 11/17/16 16:43> ENT: Present: mucous membranes moist <Erika Pantoja [facility] 11/17/16 16:43> - Routine Neck Exam Absent: JVD, carotid bruit <ScarlettErika [facility] 11/17/16 16:43> - Routine Chest/Breast/Axilla Exam Chest wall: Absent: tenderness <ScarlettErika garg [facility] 11/17/16 16:43> - Routine Respiratory Exam Present: CTA bilaterally. Absent: rales, wheezes <ScarlettErika Pittman 11/17/16 16:43> - Routine Cardiovascular Exam Present: no murmur, irregular rhythm. Absent: JVD <ScarlettErika Pittman 11/17/16 16:43> - Routine Abdominal Exam Present: soft, normoactive bowel sounds <ScarlettErika [facility] 11/17/16 16:43> - Routine Extremities Exam Present: no edema <Erika Pantoja - 11/17/16 16:43> - Routine Skin Exam Present: intact, dry, warm <Erika Pantoja - 11/17/16 16:43> - Routine Neurological Exam Present: alert, oriented X3 <Erika Pantoja - 11/17/16 16:43> - Routine Psychiatric Exam Present: normal affect, normal thought process <Erika Pantoja - 11/17/16 16: 43> - Additional findings Additional findings: Laboratory Results - last 24 hr 11/17/16 11/17/16 04:11 04:11 WBC 4.5 RBC 4.69 Hgb 13.6 Hct 42.5 MCV 90.6 MCH 29.0 MCHC 32.0 RDW Std Deviation 53.8 H Plt Count 91 L MPV 11.9 Magnesium 2.0 B-Natriuretic Peptide 50017 H Amlodipine Besylate (Norvasc) 5 mg PO DAILY [facility] Last Admin: 11/17/16 10:14 Dose: 5 mg Apixaban (Eliquis) 5 mg PO BID [facility] Last Admin: 11/17/16 10:14 Dose: 5 mg Bumetanide (Bumex Inj) 2 mg IVP Q6H [facility] Last Admin: 11/17/16 10:15 Dose: 2 mg Carvedilol (Coreg) 12.5 mg PO BIDWM [facility] Last Admin: 11/17/16 10:14 Dose: 12.5 mg Ondansetron HCl (Zofran) 4 mg IVP Q6H PRN PRN Reason: Nausea &/or vomiting Last Admin: 11/16/16 16:41 Dose: 4 mg Pantoprazole Sodium (Protonix Iv) 40 mg IVP DAILY [facility] Last Admin: 11/17/16 10:15 Dose: 40 mg Potassium Chloride (K-Dur) 20 meq PO TIDWM [facility] Last Admin: 11/17/16 12:48 Dose: 20 meq Sodium Chloride (Iv Flush) 10 - 80 ml IVF PRN PRN PRN Reason: Flushing Last Admin: 11/17/16 10:16 Dose: 10 ml <Erika Pantoja - 11/17/16 16:43> Assessment and Plan - Assessment and Plan (1) Acute on chronic systolic heart failure Status: Acute (2) Presence of cardiac pacemaker Status: Chronic (3) Atherosclerotic heart disease of [place] coronary artery without angina pectoris Status: Chronic (4) Atherosclerosis of [place] artery of both lower extremities Status: Chronic (5) Persistent atrial fibrillation Status: Chronic (6) Cardiomyopathy Status: Chronic (7) Essential (primary) hypertension Status: Chronic (8) Mixed hyperlipidemia Status: Chronic <Kris Tripp - 11/21/16 15:35> (1) Acute on chronic systolic heart failure Status: Acute DC IV Bumex, give Bumex 3mg po BID - Add Metolazone 2.5mg weekly, with Potassium 40meq on that day. (2) Cardiomyopathy Status: Chronic (3) Presence of cardiac pacemaker Status: Chronic (4) Atherosclerotic heart disease of [place] coronary artery without angina pectoris Status: Chronic (5) Atherosclerosis of [place] artery of both lower extremities Status: Chronic (6) Persistent atrial fibrillation Status: Chronic (7) Essential (primary) hypertension Status: Chronic (8) Mixed hyperlipidemia Status: Chronic <Erika Pantoja - 11/18/16 12:23> - Attestation Attestation Narrative: 11/21/16 15:35 Recommendation After examining the patient I agree with the above assessment. I am involved in the formulation of the patient's plan of care. <Kris Tripp - 11/21/16 15:35> Hospital Course Summary Disclaimer: The visit summary below is not to be considered part of the above Progress Note. <Kris Tripp - 11/21/16 15:35> The visit summary below is not to be considered part of the above Progress Note. <Erika Pantoja - 11/17/16 16:43> Hospital Course: Acute on Chronic Systolic CHF: - Diuresis with Bumex 2mg IV Q6H. - Potassium 20meq po TID. - Fluid restriction of 2000ml/24h - repeat renal and electrolytes in am Cardiomyopathy: - Diuresis with Bumex 2mg IV Q6H. - Potassium 20meq po TID. - Fluid restriction of 2000ml/24h - repeat renal and electrolytes in am 11/16/16 continue Bumex 2mg IV Q6H Recheck BMP, Mag, and BNP in Am Chest x-ray in am 11/17/16 19:42 DC IV Bumex, give Bumex 3mg po BID - Add Metolazone 2.5mg weekly, with Potassium 40meq on that day - Change IV Protonix IV to PO daily - Add Zofran OTD 4mg as needed for nausea. <Erika Pantoja - 11/17/16 19:44>
[2016-11-17] MEDS ORDERED: ONDANSETRON ODT 4 MG TABLET PO PRN (19:37)
[2016-11-18] MEDS ORDERED: PANTOPRAZOLE 40 MG TABLET PO SCH (06:30)
[2016-11-18 07:30] VITALS: BP 133/89; TEMP 95.3; O2SAT 96
[2016-11-18] MEDS ORDERED: BUMETANIDE 1 MG TABLET PO SCH (09:00)
[2016-11-18] MEDS: AMLODIPINE 5 MG TABLET PO SCH (09:11)
[2016-11-18] MEDS: CARVEDILOL 12.5 MG TABLET PO SCH (09:11)
[2016-11-18] MEDS: APIXABAN 5 MG TABLET PO SCH (09:11)
[2016-11-18] MEDS: SALINE FLUSH 10ml SYRINGE IVF PRN (09:12)
[2016-11-18 10:31] VITALS: PULSE 70
--- NOTE | 2016-11-18 12:27 | Discharge Summary ---
<Erika Pantoja - Last Filed: 11/18/16 12:24> Discharge Information Date of admission: 11/15/16 15:08 Anticipated date of discharge: 11/18/16 Attending Physician: Kris Tripp MD Primary care physician: LUIS TRAN Consults: 11/18/16 11:16 Dietary Consult [CONS] Routine Comment: Reason For Exam: cardaic 2gm sodium 2000 cc fld restricitons - Discharge Diagnosis (1) Acute on chronic systolic heart failure Status: Acute (2) Cardiomyopathy Status: Chronic (3) Presence of cardiac pacemaker Status: Chronic (4) Atherosclerotic heart disease of [place] coronary artery without angina pectoris Status: Chronic (5) Atherosclerosis 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 No pneumothorax or new airspace consolidation. Heart size and mediastinal contours are stable. Impression: Slightly improved aeration of the right lower lobe with persistent mild edema and small right effusion Date of Exam: 11/15/16 Ordering Provider: Roopa Braswell APRN Type of Exam(s): XR chest 1V Reason for Exam(s): SOA, hx. of CHF Indication: SOA, hx. of CHF PROCEDURE: XR chest 1V: Encounter: Initial Comparison: CT chest from the same date Findings: Hypoinflation. Right pleural effusion better seen on the chest CT. Right basilar airspace consolidation. Increased interstitial markings. No pneumothorax. Cardiac silhouette is severely enlarged but unchanged. Cardiac pacemaker defibrillator again noted. Mediastinal contours are stable. Pulmonary vascularity is indistinct. Impression: Right pleural effusion and basilar airspace disease. Findings of congestive failure. Date of Exam: 11/15/16 Ordering Provider: Roopa Braswell APRN Type of Exam(s): CT chest w con Reason for Exam(s): peak in left diaphragm, concern for mass/consolidation Indication: peak in left diaphragm, concern for mass/consolidation PROCEDURE: CT chest w con: Encounter: Initial Comparison: None Technique: Axial CT images were performed through the chest after the administration of intravenous contrast. Coronal and sagittal two-dimensional reformats. Automated Exposure Control and Iterative Reconstruction dose reducing techniques were utilized. Contrast: Visipaque 30 75 mL Findings: Moderate sized right pleural effusion with compressive atelectasis of the right middle lobe. Scarring and focal atelectasis in the medial right middle lobe containing an area of calcification on axial image #38. Small calcified granulomas. Bleb in the left lower lobe with a nearby granuloma. No pneumothorax. No discrete pulmonary mass. The central airways are patent. No axillary or mediastinal adenopathy. Heart is severely enlarged with a small pericardial effusion. Calcified hilar granulomas. Granulomatous disease in the liver and spleen with ascites seen in the upper abdomen. Multiple gallstones. Impression: 1. Right pleural effusion with ascites may represent a generalized volume overload or represent renal, hepatic or cardiac dysfunction. There is no strong evidence of acute pulmonary edema in the chest however. 2. Severe cardiomegaly with a pericardial effusion. There is a preliminary report by [facility]. History of Present Illness HPI: Albert is a 80 year old male who is well known to our practice with a history of chronic systolic CHF, cardiomyopathy with an EF of 25%, [employer] AICD, CAD, PAD, persistent atrial fibrillation, pulmonary hypertension with PAP 49mmHg, HTN and HLD who presented to the ED today with shortness of breath. He reported he has had "shortness of air worth worse with exertion for years ". Says he was recently in the hospital and dismissed for this same symptoms. He states he has not been able to take his morning medications because he has nausea and vomiting. States that nausea and vomiting is chronic (not new). Says he has swelling in lower extremities that goes down at night. He has "borrowed some oxygen" and has been using this at home for some time. Normally use 4L. 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 Albert is seen on Medical. He is laying in bed with the HOB at 30%, on O2 at 3L /NC. He has conversational dyspnea, lips are cracked and dry, and he has no pedal edema. Lung sounds clear other than essentially no breath sounds in the lower right lobe. He denies recent illness, fever, chills, cough, sore throat, CP, diaphoresis. Hospital Course This is a general summary of the patient's hospital course. For more details refer to the complete medical record. Hospital course: Acute on Chronic Systolic CHF: - Diuresis with Bumex 2mg IV Q6H. - Potassium 20meq po TID. - Fluid restriction of 2000ml/24h - repeat renal and electrolytes in am Cardiomyopathy: - Diuresis with Bumex 2mg IV Q6H. - Potassium 20meq po TID. - Fluid restriction of 2000ml/24h - repeat renal and electrolytes in am 11/16/16 continue Bumex 2mg IV Q6H Recheck BMP, Mag, and BNP in Am Chest x-ray in am 11/17/16 19:42 DC IV Bumex, give Bumex 3mg po BID - Add Metolazone 2.5mg weekly, with Potassium 40meq on that day - Change IV Protonix IV to PO daily - Add Zofran OTD 4mg as needed for nausea. Time spent with patient: 25 - 35 minutes DVT Prophylaxis: Eliquis Exam Vital signs: Temperature 95.3 F L 11/18/16 07:28 Pulse Rate 70 11/18/16 08:00 Respiratory Rate 18 11/18/16 07:28 Blood Pressure 133/89 11/18/16 07:28 Pulse Oximetry 96 11/18/16 07:28 - Constitutional no acute distress, well nourished, cooperative - Routine HEENT Exam Head: Present: normocephalic ENT: Present: mucous membranes moist - Routine Neck Exam Absent: JVD, carotid bruit - Routine Chest/Breast/Axilla Exam Chest wall: Absent: tenderness - Routine Respiratory Exam Present: CTA bilaterally, diminished air movement. Absent: rales, wheezes - Routine Cardiovascular Exam Present: no murmur, irregular rhythm. Absent: JVD - Routine Abdominal Exam Present: soft, normoactive bowel sounds - Routine Extremities Exam Present: no edema - Routine Skin Exam Present: intact, dry, warm - Routine Neurological Exam Present: alert, oriented X3 - Routine Psychiatric Exam Present: normal affect, normal thought process Results 11/17/16 04:11 11/18/16 04:12 Comprehensive Metabolic Panel 11/18/16 Range/Units 04:12 Sodium 147 H (134-144) MEQ/L Potassium 4.0 (3.6-5) MEQ/L Chloride 103 (98-107) MEQ/L Carbon Dioxide 33 H (22-30) MEQ/L BUN 36.0 H (9-20) MG/DL Creatinine 1.7 H D (0.8-1.5) MG/DL Glucose 104 (75-110) MG/DL Calcium 8.3 L (8.4-10.2) MG/DL Intake and Output 11/17/16 11/18/16 11/18/16 22:59 06:59 14:59 Intake Total 800 / 800 240 / 240 Output Total 250 / 250 225 / 225 Balance 550 / 550 -225 / -225 240 / 240 Intake: Oral 800 / 800 240 / 240 Output: Urine 250 / 250 225 / 225 Other: Urine Appearance Clear Clear Urine Color Yellow Yellow Stool Color Brown Stool Consistency Soft Formed Size of Bowel Movement Moderate # Voids 1 # Bowel Movements 1 Weight 173 lb 15.115 oz Patient Weight 11/19/16 06:59 Weight 173 lb 15.115 oz - Imaging and Cardiology EKG results: image reviewed - EKG Interpretation EKG: WNL (V paced) Discharge Plan - Med Rec/Dispo Referrals/Follow Up: Kris Tripp MD [Physician] - 12/05/16 9:30 am Brett Instructions: [facility] Congestive Heart Failure, Heart Failure (DC) Prescriptions: New Carvedilol [Coreg] 12.5 mg PO BIDWM #60 tab Metolazone [Zaroxolyn] 2.5 mg PO WEEKLY #10 tab Pantoprazole Tab [Protonix Tab] 40 mg PO ACB #30 tab Potassium Chloride [K-Dur] 20 meq PO TIDWM #90 tab Amlodipine [Norvasc] 5 mg PO DAILY #30 tab Bumetanide Tab [Bumex Tab] 3 mg PO [id number] #180 tab Ondansetron Odt [Zofran Po] 4 mg PO Q6H PRN #30 tab PRN Reason: Nausea &/Or Vomiting Continue Lisinopril [Prinivil] 40 mg PO DAILY Nitroglycerin [Nitrostat] 0.4 mg SL Q5MIN PRN #25 tab PRN Reason: CHEST PAIN Apixaban [Eliquis] 5 mg PO BID #60 tab Discontinued Potassium Chloride [K-Dur] 20 meq PO BID Bumetanide Tab [Bumex Tab] 1 mg PO BID Furosemide [Lasix] 20 mg PO DAILY - Disposition 01 Discharged Home, Self-Care <Kris Tripp - Last Filed: 11/24/16 13:13> Discharge Information Date of admission: 11/15/16 15:08 Attending Physician: Kris Tripp MD Primary care physician: LUIS TRAN Consults: 11/18/16 11:16 Dietary Consult [CONS] Routine Comment: Reason For Exam: cardaic 2gm sodium 2000 cc fld restricitons - Discharge Diagnosis (1) Acute on chronic systolic heart failure Status: Acute (2) Presence of cardiac pacemaker Status: Chronic (3) Atherosclerotic heart disease of [place] coronary artery without angina pectoris Status: Chronic (4) Atherosclerosis of [place] artery of both lower extremities Status: Chronic (5) Persistent atrial fibrillation Status: Chronic (6) Cardiomyopathy Status: Chronic (7) Essential (primary) hypertension Status: Chronic (8) Mixed hyperlipidemia Status: Chronic - Laboratory Labs: 11/17/16 04:11 11/18/16 04:12 Hospital Course This is a general summary of the patient's hospital course. For more details refer to the complete medical record. Exam Vital signs: Temperature 95.3 F L 11/18/16 07:28 Pulse Rate 70 11/18/16 08:00 Respiratory Rate 18 11/18/16 07:28 Blood Pressure 133/89 11/18/16 07:28 Pulse Oximetry 96 11/18/16 07:28 Results 11/17/16 04:11 11/18/16 04:12 Discharge Plan - Med Rec/Dispo - Attestation Attestation Narrative: 11/24/16 13:13 Recommendation After examining the patient I agree with the above assessment. I am involved in the formulation of the patient's plan of care.
== END 2016-11-18 14:00 | disposition home or self-care (01) | DRG 292 ==
LOC: ED 09:43 → MED 15:08
PROVIDERS: ADMIT Internal Medicine Cardiovascular Disease; ATTEND Internal Medicine Cardiovascular Disease